=== PATIENT | male | born 1985 | race Two or more races ===

== ENCOUNTER 2017-04-01 15:26 | Inpatient (IN) | payer MEDICAID, OTHER ==
[~2017-04-01] VITALS: Ht 165.1 cm; Wt 63.5 kg
--- NOTE | 2017-04-01 15:44 | NUR ---
PT BIBA FROM WORK S/P A GAS PUMP/PIPE FELL ON TOP OF HIM. NOTED IN C-SPINE PRECUATION. MD AT FOR EVAL. PT AOOX3. C/O BILATERAL HIP, LEG PAIN. VSS. SAFETY AND COMFORT MEASURES PROVIDED. WILL MONITOR.
--- NOTE | 2017-04-01 16:15 | NUR ---
PT TAKEN TO CT.
[2017-04-01] MEDS ORDERED: IV NS 0.9% 1,000 ML BAG IV ONE (17:30)
[2017-04-01] MEDS ORDERED: MORPHINE SULFATE INJ 2 MG/ML DISP.SYRIN IV ONE (17:30)
[2017-04-01] MEDS ORDERED: ONDANSETRON HCL/PF - ER 4 MG/2 ML VIAL IV ONE (17:30)
[2017-04-01 17:32] LABS: BASOPHILS % (AUTO) 0.1 % (0.0-2.0); EOSINOPHILS # (AUTO) 0.1 /CMM (0.0-0.7); EOSINOPHILS % (AUTO) 1.3 % (0.0-6.0); HEMATOCRIT 38 % (39-51); HEMOGLOBIN 12.7 g/dL (13.5-17.5); LYMPHOCYTES # (AUTO) 0.5 /CMM (0.8-4.8); LYMPHOCYTES % (AUTO) 6.3 % (20.0-44.0); MEAN CORPUSCULAR HEMOGLOBIN 29 PG (26.0-33.0); MEAN CORPUSCULAR HGB CONC 34 g/dl (31.0-36.0); MEAN CORPUSCULAR VOLUME 85 fL (80-96); MONOCYTES # (AUTO) 0.7 /CMM (0.1-1.30); MONOCYTES % (AUTO) 8.6 % (2.0-12.0); NEUTROPHILS # (AUTO) 6.7 /CMM (1.8-8.9); NEUTROPHILS % (AUTO) 83.7 % (43.0-81.0); PLATELET COUNT (AUTO) 321 /CMM (150-450); RDW COEFFICIENT OF VARIATION 12.6 (11.5-15.0); RED BLOOD CELL COUNT(AUTO) 4.42 MIL/uL (4.5-6.0)
[2017-04-01 17:41] LABS: CALCIUM, SERUM 8.2 mg/dL (8.5-10.1); POTASSIUM 3.1 mmol/L (3.5-5.1)
[2017-04-01 17:47] LABS: ALBUMIN 3.4 g/dL (3.4-5.0); BILIRUBIN,DIRECT 0.1 mg/dL (0.0-0.2); BILIRUBIN,TOTAL 0.6 mg/dL (0.2-1.0); TOTAL PROTEIN, SERUM 8.6 g/dL (6.4-8.2)
[2017-04-01] MEDS ORDERED: ONDANSETRON HCL/PF 4 MG/2 ML VIAL ONE (17:51)
[2017-04-01] MEDS ORDERED: MORPHINE SULFATE INJ 2 MG/ML DISP.SYRIN ONE ×2 (17:53→22:02)
[2017-04-01 17:59] LABS: INR 0.95 (0.87-1.13); PROTHROMBIN TIME 9.9 SECS (9.5-12.7)
--- NOTE | 2017-04-01 18:10 | NUR ---
PT MEDICATED ORDERED.
[2017-04-01] MEDS ORDERED: IV NS 0.9% 250 ML IV ONE (18:13)
[2017-04-01] MEDS ORDERED: IOHEXOL-300 100 ML VIAL IV ONE (18:13)
--- NOTE | 2017-04-01 18:49 | NUR ---
CALLED DR ARCE FOR ORTHO CONSULT, TRANSFERRED CALL TO DR HERNANDEZ
[2017-04-01 20:00] VITALS: BP 129/82
[2017-04-01] MEDS ORDERED: POTASSIUM CHLORIDE 20 MEQ TAB.PRT.SR PO ONE ×4 (20:20→22:00)
--- NOTE | 2017-04-01 20:30 | NUR ---
RN NOTE PT ARRIVED ON UNIT. AAOX4, ADMITTED FOR PELVIC FX, HAS 7/10 PAIN. NO S/S OF RESPIRATORY DISTRESS - BREATHING NON-LABORED AND EVEN ON ROOM AIR. ORIENTATED TO UNIT AND CALL LIGHT. UPDATED ON POC. IV INTACT AND PATENT. NO SKIN ISSUES. AWAITING MD ORDERS. WILL MONITOR.
--- NOTE | 2017-04-01 20:30 | NUR ---
POTASSIUM 40MEQ GIVEN PER DR NELSON'S VERBAL ORDER FOR POTASSIUM LEVEL OF 3.1.
--- NOTE | 2017-04-01 20:36 | NUR ---
TRANSFERRED TO [facility] FLOOR ROOM 323-2, ENDORSED TO MARY CARMEN MORGAN.
[2017-04-01] MEDS ORDERED: ZOLPIDEM TARTRATE 5 MG TABLET PO PRN (22:00)
[2017-04-01] MEDS ORDERED: MAGNESIUM HYDROXIDE 30 ML UDC PO PRN (22:00)
[2017-04-01] MEDS ORDERED: MAG HYDROX/AL HYDROX/SIMETH 30 ML UDC PO PRN (22:00)
[2017-04-01] MEDS ORDERED: Z GUARD REMEDY 2 OZ OINT TP PRN (22:00)
[2017-04-01] MEDS ORDERED: ACETAMINOPHEN 325 MG TABLET PO PRN (22:00)
[2017-04-01] MEDS ORDERED: ONDANSETRON HCL/PF 4 MG/2 ML VIAL IVP PRN (22:00)
[2017-04-01] MEDS: MORPHINE SULFATE INJ 2 MG/ML DISP.SYRIN IV PRN (22:17)
[2017-04-01] MEDS: IV D5/0.45 NACL 1,000 ML IV PRN (22:18)
--- NOTE | 2017-04-02 07:02 | NUR ---
RN NOTE NO SIGNIFICANT EVENTS OVERNIGHT. PAIN MANAGED WITH PRN MIORPHINE. AAOX4, NO DISTRESS AT THIS TIME. WILL F/U WITH DAY SHIFT FOR YSDNI.
[2017-04-02] MEDS: PANTOPRAZOLE 40 MG TABLET.DR PO SCH (07:30)
--- NOTE | 2017-04-02 07:30 | NUR ---
RN NOTES RECEIVED PATIENT IN BED SLEEPING, AROUSES EASILY. A/O X4. NO ACUTE DISTRESS, NO SOB NOTED. DENIES PAIN AT THIS TIME. IV SITE INTACT AND PATENT. KEPT SAFE AND COMFORTABLE. BED IN LOW POSITION, LOCKED, SIDERAILS UP X2. CALLL LIGHT IN REACH. WILL MONITOR PATIENT ACCORDINGLY.
[2017-04-02 07:49] LABS: BASOPHILS % (AUTO) 0.5 % (0.0-2.0); EOSINOPHILS # (AUTO) 0.3 /CMM (0.0-0.7); EOSINOPHILS % (AUTO) 5.8 % (0.0-6.0); HEMATOCRIT 36 % (39-51); HEMOGLOBIN 11.9 g/dL (13.5-17.5); LYMPHOCYTES # (AUTO) 0.5 /CMM (0.8-4.8); LYMPHOCYTES % (AUTO) 10.2 % (20.0-44.0); MEAN CORPUSCULAR HEMOGLOBIN 29 PG (26.0-33.0); MEAN CORPUSCULAR HGB CONC 33 g/dl (31.0-36.0); MEAN CORPUSCULAR VOLUME 87 fL (80-96); MONOCYTES # (AUTO) 0.6 /CMM (0.1-1.30); MONOCYTES % (AUTO) 13.7 % (2.0-12.0); NEUTROPHILS # (AUTO) 3.1 /CMM (1.8-8.9); NEUTROPHILS % (AUTO) 69.8 % (43.0-81.0); PLATELET COUNT (AUTO) 277 /CMM (150-450); RDW COEFFICIENT OF VARIATION 13.8 (11.5-15.0); RED BLOOD CELL COUNT(AUTO) 4.11 MIL/uL (4.5-6.0); WHITE BLOOD COUNT (AUTO) 4.5 K/uL (4.3-11.0)
[2017-04-02 08:00] VITALS: BP 117/71
--- NOTE | 2017-04-02 08:00 | NUR ---
RN NOTES PROTONIX PO HELD, PATIENT NPO.
[2017-04-02 08:50] LABS: ALBUMIN 2.7 g/dL (3.4-5.0); BILIRUBIN,TOTAL 0.9 mg/dL (0.2-1.0); CALCIUM, SERUM 7.8 mg/dL (8.5-10.1); CREATININE 0.8 mg/dL (0.6-1.3); MAGNESIUM 1.9 mg/dL (1.8-2.4); PHOSPHORUS 3.6 mg/dL (2.5-4.9); POTASSIUM 3.4 mmol/L (3.5-5.1); TOTAL PROTEIN, SERUM 7.6 g/dL (6.4-8.2)
[2017-04-02] MEDS: HYDROCODONE/APAP 5/325MG 1 EACH TABLET PO PRN ×3 (10:25→20:06)
[2017-04-02] MEDS: MORPHINE SULFATE INJ 2 MG/ML DISP.SYRIN IV PRN ×3 (10:28→15:17)
[2017-04-02] MEDS ORDERED: ACET325T53 PO (11:37)
[2017-04-02] MEDS ORDERED: HYDR-3326 PO (11:37)
[2017-04-02] MEDS ORDERED: ASPI325T2 PO (11:41)
[2017-04-02] MEDS: POTASSIUM CL. PREMIX PERIPHER. 50 ML IV SCH ×2 (11:51→13:12)
--- NOTE | 2017-04-02 12:45 | NUR ---
RN NOTES DID BLADDER SCAN, SHOWED 900 ML URINE. NOTIFIED .
--- NOTE | 2017-04-02 14:00 | NUR ---
RN NOTES DID IN/OUT CATHETER, 1200 ML URINE OUTPUT. WILL MONITOR ACCORDINGLY.
[2017-04-02] MEDS: IV D5/0.45 NACL 1,000 ML IV PRN (15:19)
[2017-04-02 16:00] VITALS: BP 118/70
--- NOTE | 2017-04-02 19:00 | NUR ---
RN CLOSING NOTES PATIENT IN BED RESTING. NO ACUTE DISTRESS, NO SOB NOTED, DENIES PAIN AT THIS TIME. ALL NEEDS ATTENDED AND PROVIDED. BED IN LOW POSITION, LOCKED SIDERAILS UP X2. CALL LIGHT IN REACH. ENDORSED TO PROBATION OFFICER RN FOR SYDNI.
--- NOTE | 2017-04-02 19:29 | NUR ---
ms/rn opening notes patient in bed, resting comfortably in bed, able to verbalize needs, will monitor pain and check b/p, respirations even and unlabored, , receive endorsement from am rn regarding patricio, remind patient to use call lights, monitoring urine output, skin warm to touch, fluids offered, iv runining on left fore arm, will continue to monitor.
[2017-04-02 19:58] VITALS: BP 122/81
[2017-04-02 20:00] VITALS: BP 122/81
--- NOTE | 2017-04-02 20:04 | NUR ---
ms/rn notes patient reported pain on right leg 510 will give prn med norco 5/325mg po and will monitor effectiveness.
[2017-04-03] MEDS: MORPHINE SULFATE INJ 2 MG/ML DISP.SYRIN IV PRN ×3 (01:51→11:48)
--- NOTE | 2017-04-03 01:51 | NUR ---
ms/rn notes observed guarding and moaning, pain in abdomen and bladder, will check bladder and check any retention,. no urine on urinal
--- NOTE | 2017-04-03 07:10 | NUR ---
ms/rn notes patient complained of pain 8/10 on left knee, alert, oriented x3 will continue to monitor.
--- NOTE | 2017-04-03 07:30 | NUR ---
ms/rn closing notes patient in bed, resting comfortably in bed, no s/s of discomfort. endorse to am rn regarding patricio. pain monitoring and check for effectiveness. call lights withiin reach.
[2017-04-03 07:42] LABS: CALCIUM, SERUM 7.7 mg/dL (8.5-10.1); CREATININE 0.7 mg/dL (0.6-1.3); POTASSIUM 3.5 mmol/L (3.5-5.1)
[2017-04-03 08:00] VITALS: BP 142/94
[2017-04-03] MEDS: PANTOPRAZOLE 40 MG TABLET.DR PO SCH (08:21)
[2017-04-03] MEDS: HYDROCODONE/APAP 5/325MG 1 EACH TABLET PO PRN (10:08)
--- NOTE | 2017-04-03 12:00 | NUR ---
RN NOTES PT EVAL DONE. PER PT, PATIENT ABLE TO WALK 17 FEET AROUND THE ROOM USING A WALKER, TOLERATED WELL. WILL CONTINUE TO MONITOR ACCORDINGLY
[2017-04-03 16:00] VITALS: BP 142/93
[2017-04-03] MEDS ORDERED: ZOLPIDEM TARTRATE 5 MG TABLET PO PRN (19:00)
[2017-04-03] MEDS ORDERED: MAG HYDROX/AL HYDROX/SIMETH 30 ML UDC PO PRN (19:00)
[2017-04-03] MEDS ORDERED: IV D5/0.45 NACL 1,000 ML IV PRN (19:00)
[2017-04-03] MEDS ORDERED: ACETAMINOPHEN 325 MG TABLET PO PRN (19:00)
[2017-04-03] MEDS ORDERED: MAGNESIUM HYDROXIDE 30 ML UDC PO PRN (19:00)
[2017-04-03] MEDS ORDERED: ONDANSETRON HCL/PF 4 MG/2 ML VIAL IVP PRN (19:00)
--- NOTE | 2017-04-03 19:30 | NUR ---
RN NOTES PATIENT IN BED RESTING. NO ACUTE DISTRESS, NO SOB NOTED. ALL NEEDS ATTENDED AND PROVIDED. KEPT PATIENT SAFE AND COMFORTABLE. AWAITING FOR DISCHARGE. BED IN LOW POSITION, LOCKED, SIDERAILS UP X2. CALL LIGHT IN REACH, ENDORSED TO URGENT CARE NURSE PRACTITIONER RN FOR SYDNI.
--- NOTE | 2017-04-03 19:30 | NUR ---
RN OPENING NOTES Pt AWAITING TO BE DISCHARGED. D/C ORDERS IN AND EXIT CARE DONE BY RINA MORGAN. Pt IS WAITING FOR HIS PRESCRIPTION FOR NORCO 5-[address] WAS [address] JENNIFER Leggett, BUT WAS NOT PHYSICALLY WRITTEN FOR THE Pt TO TAKE TO THE PHARMACY. WILL SEE IF SOFTWARE ENGINEERING PROJECT MANAGER EPIC MD WILL BE ABLE TO WRITE THE PRESCRIPTION FOR THE Pt INSTEAD. FOUND Pt AWAKE, SITTING IN CHAIR. NO S/S OF ACUTE DISTRESS OR SOB NOTED. Pt IS A/OX4, VERBAL, ABLE TO MAKE NEEDS KNOWN. SAFETY MEASURES IN PLACE. BED LOW, LOCKED, HOB ELEVATED, SIDE RAILS UP, CALL LIGHT AND BEDSIDE TABLE WITHIN REACH. WILL CONTINUE TO MONITOR Pt FOR SAFETY UNTIL DISCHARGE.
[2017-04-03 20:00] VITALS: BP 125/86
--- NOTE | 2017-04-03 21:00 | NUR ---
RN NOTES SPOKE WITH DR NUNEZ ON THE PHONE FIRST TIME AROUND 2029, MD REFUSING TO WRITE A PRESCRIPTION NORCO 5-325 FOR THE Pt SINCE IT WAS DR RODRIGUEZ WHO ORIGINALLY ORDERED THE PRESCRIPTION. DR NUNEZ SAID THE OVER THE COUNTER PAIN MEDS: ACETAMINOPHEN & IBUPROFEN SHOULD BE ENOUGH TO TAKE CARE OF THE Pt's PAIN AND THAT HE DOES NOT NEED THE NORCO. SPOKE WITH THE FAMILY ABOUT THE SITUATION SAYING THAT THE DR SAID THE Pt DOES NOT NEED NORCO FOR HIS PAIN, SO THEREFORE THE MD WAS NOT GOING TO WRITE A PRESCRIPTION FOR THE Pt. THE FAMILY AND THE Pt WERE UPSET, SAYING THAT THE PAIN WILL NOT BE TAKEN CARE OF BY OTC PAIN MEDS AND THAT THE Pt NEEDS STRONGER PAIN MED IF HE IS TO BE DISCHARGED HOME. Pt REFUSED TO GO HOME WITHOUT SOME KIND OF PAIN MED PRESCRIPTION FOR HIS PAIN. SPOKE WITH DR NUNEZ AGAIN ON THE PHONE AROUND 2044, AND RELAYED THE MESSAGE THAT THE Pt IS REFUSING TO LEAVE WITHOUT A PAIN MED PRESCRIPTION BECAUSE HE IS HAVING TOO MUCH PAIN. SO DR. NUNEZ SUGGESTED THAT HE STAY IN THE HOSPITAL FOR ANOTHER NIGHT IF HIS PAIN IS NOT TOLERATED, AND HIS PAIN LEVEL CAN BE REASSESSED TOMORROW BEFORE DISCHARGE. SPOKE TO THE Pt AND HIS FAMILY ABOUT THE ALTERNATIVE CHOICE TO STAY ANOTHER NIGHT AND BE DISCHARGED TOMORROW MORNING INSTEAD. Pt AND FAMILY AGREED TO STAY ONE MORE NIGHT.
[2017-04-04] MEDS: MORPHINE SULFATE INJ 2 MG/ML DISP.SYRIN IV PRN ×3 (01:40→22:08)
--- NOTE | 2017-04-04 06:51 | NUR ---
RN CLOSING NOTES NO SIGNIFICANT CHANGES IN Pt's CONDITION. NO S/S OF ACUTE DISTRESS OR SOB NOTED DURING THE NIGHT. ALL NEEDS MET AND ATTENDED TO. SAFETY MEASURES IN PLACE. WAITING TO BE D/C TODAY IN THE AM. WILL ENDORSE TO DAYSHIFT RN FOR Pt's SYDNI.
--- NOTE | 2017-04-04 07:30 | NUR ---
- Patient fully awake, cooperative & agreed to wait for MD, prefers to have the prescription prior to going home. Eating breakfast this time.
[2017-04-04 08:00] VITALS: BP 137/74
[2017-04-04] MEDS: PANTOPRAZOLE 40 MG TABLET.DR PO SCH (08:49)
[2017-04-04] MEDS: HYDROCODONE/APAP 5/325MG 1 EACH TABLET PO PRN ×2 (08:50→20:47)
--- NOTE | 2017-04-04 09:55 | NUR ---
- Visited by Dr. RODRIGUEZ , no new orders except giving info to vanna Fulton RN RE; SNF , being arranged by CM , since patient has impaired mobility. Waiting for CM .
--- NOTE | 2017-04-04 12:00 | NUR ---
- Was notified by JIM ACEVEDO RN that patient is allowed to stay till THURSDAY due to pain management. Patient calls for pain meds & agreed to alternate [place] in between .
[2017-04-04 16:00] VITALS: BP 119/70
[2017-04-04 16:02] VITALS: BP 119/70
--- NOTE | 2017-04-04 18:00 | NUR ---
Closing RN Notes: - this time , patient is looking at TV , refused dinner since his Mom brought pizza & soda . Still needs Physical Therapy eval . , since patient is non-ambulatory & Dr. RODRIGUEZ prefers to check patient's mobility prior to discharge. Patient remains on room air, non;labored respirations.
[2017-04-04 20:00] VITALS: BP 122/82
[2017-04-05] MEDS: MORPHINE SULFATE INJ 2 MG/ML DISP.SYRIN IV PRN ×5 (02:44→20:17)
--- NOTE | 2017-04-05 07:15 | NUR ---
RN NOTES PT IS IN BED, RESTING COMFORTABLY. PT ON RA, RESPIRATIONS ARE EVEN AND UNLABORED. IV ON LFA INTACT AND PATENT. SAFETY MEASURES ARE IN PLACE, CALL LIGHT IS IN REACH. WILL CONTINUE TO MONITOR.
--- NOTE | 2017-04-05 07:40 | NUR ---
pt with pelvic fracture,ambulates with walker to bathroom, morphine given for pain with good relief.no bm but passes gas. eating well, vss,afebrile,plan rehab thursday.all needs attended.
[2017-04-05] MEDS: PANTOPRAZOLE 40 MG TABLET.DR PO SCH (07:41)
[2017-04-05 08:00] VITALS: BP 132/88
[2017-04-05 16:00] VITALS: BP 136/81
--- NOTE | 2017-04-05 18:49 | NUR ---
RN NOTES PT IS IN BED, RESTING COMFORTABLY. PT ON RA, RESPIRATIONS ARE EVEN AND UNLABORED. MORPHINE WAS GIVEN AT 1620 FOR PAIN. IV ON L WRIST INTACT AND PATENT, SL. ALL MEDS WERE GIVEN ORDERED. SAFETY MEASURES ARE IN PLACE, CALL LIGHT IS IN REACH. WILL ENDORSE TO ELECTRONICS TECHNICIAN RN FOR CONTINUITY OF CARE.
--- NOTE | 2017-04-05 19:50 | NUR ---
RN INITIAL NOTES: RECEIVED REPORT FROM DAVID, PT IN BED, SLEEPING, AROUSES TO TACTILE STIMULI, PER PT HE HAS 6/10 PAIN THAT STAYS ION HIS SACRAL AREA, PT REFUSED TO WEAR HOSPITAL GOWN AND INSISTED TO USE HIS OWN CLOTHES. PT HAS LFA IV ACCESS PATENT AND FLUSHING WELL, INFUSING WITH D5 1/2 NS AT 75ML/HR. SAFETY PRECAUTIONS FOR FALL INITIATED CALL LIGHT IN REACH, WILL CONTINUE TO MONITOR.
[2017-04-05 20:00] VITALS: BP 122/70
--- NOTE | 2017-04-05 20:18 | NUR ---
PRN MORPHINE: PT C/O 02/26 PAIN ON HIS SACRAL TO HIP AREA REQUESTING FOR MORPHINE, PRN MORPHINE 2MG IVP ADMINISTERED TO THE PT AT THIS TIME, EDUCATE PT REGARDING MEDICATION SIDE EFFECT, PT IS REQUESTING TO GET HIS NORCO TOGETHER WITH HIS MORPHINE, INFORMED PT ITS NOT POSSIBLE MORPHINE IS ALREADY A STRONGER PAIN MEDICATION, HE CAN GET THE NORCO FOR A MODERATE PAIN OR AT LEAST AFTER AN HOUR IF PAIN STILL NOT RELIEVE BY MORPHINE. PT UNDERSTAND. WILL CONTINUE TO MONITOR AND REASSESS
--- NOTE | 2017-04-05 20:32 | NUR ---
rn notes: sharmila saini city marshal currently in the unit, relayed about pt's request for cough medicine, per city marshal okay to give Robitussin 300mg po q6hr prn for cough
[2017-04-05] MEDS ORDERED: GUAIFENESIN 300 MG/15 ML UDC ONE (20:37)
--- NOTE | 2017-04-05 20:40 | NUR ---
rn notes; pt refused for scd, stated he doesnt want it and it cause more discomfort on the right pelvic area?
[2017-04-05] MEDS ORDERED: GUAIFENESIN 300 MG/15 ML UDC PO PRN (21:00)
--- NOTE | 2017-04-05 21:20 | NUR ---
rn notes: went to see the pt, currently pt asleep snoring, no facial grimace noted, appears comfortable, giselle vang as witness during pt's rounding
--- NOTE | 2017-04-05 22:39 | NUR ---
rn notes: hourly rounding at this time, pt still sleeping respiration even and unlabored, will continue to monitor
[2017-04-06] VITALS: BP 126/75
[2017-04-06] MEDS: MORPHINE SULFATE INJ 2 MG/ML DISP.SYRIN IV PRN ×5 (00:17→17:36)
--- NOTE | 2017-04-06 00:18 | NUR ---
prn morphine: pt c/o 02/26 pelvic pain requesting for morphine, prn morphine 2mg ivp administered to the pt at this time will continue to monitor and reassess
--- NOTE | 2017-04-06 04:27 | NUR ---
prn morphine: pt called c/o pain on his lower back and pelvic area 02/26 requesting for morphine prn morphine 2mg ivp administered to the pt at this time will continue to monitor and reasses
--- NOTE | 2017-04-06 06:52 | NUR ---
rn closing notes: pt in bed, awake respiration even and unlabored, last pain medication administered at 0420, lfa iv access remains patent and flushing well, infusing with d5 1/2 ns at 75ml/hr, vs remains stable needs attended for possible dc awaiting for aru placement, cm aware, safety precautions remains engaged call light in reach, will endorse to day rn for patricio.
--- NOTE | 2017-04-06 07:18 | NUR ---
MS/RN OPENING NOTES: RECEIVED PT SITTING ON THE SIDE OF HIS BED IN NO ACUTE SIGNS OF DISTRESS. A/O X 3. VERBALLY RESPONSIVE WITH NO C/O PAIN OR DISCOMFORTS AT THIS TIME. ON ROOM AIR, BREATHING EVEN AND UNLABORED. LFA IV ACCESS INTACT AND PATENT WITH D5 1/2 NS AT 75ML/HR INFUSING WELL. SAFETY PRECAUTIONS FOR FALL IN PLACED. CALL LIGHT IN REACH. WILL CONTINUE TO MONITOR PT ACCORDINGLY.
[2017-04-06 08:00] VITALS: BP 112/68
[2017-04-06] MEDS: PANTOPRAZOLE 40 MG TABLET.DR PO SCH (08:03)
--- NOTE | 2017-04-06 10:26 | NUR ---
RN NOTES SEEN BY DR RODRIGUEZ THIS MORNING WITH ORDER TO DO PT EVALUATION TODAY. PHYSICAL THERAPIST CALLED AND SAID THAT THEY WILL COME AND DO IT. WILL CONTINUE TO MONITOR.
[2017-04-06 16:00] VITALS: BP 112/72
--- NOTE | 2017-04-06 18:47 | NUR ---
MS/RN CLOSING NOTES: PT RESTING BED A/O X 3 AND SAME VERBALLY RESPONSIVE. ALL NEEDS AND CARE ATTENDED WELL. ABLE TO AMBULATE WITH WALKER. ON ROOM AIR, BREATHING EVEN AND UNLABORED. LFA IV ACCESS INTACT AND PATENT WITH D5 1/2 NS @ 75ML/HR INFUSING WELL, NO SIGNS OF INFILTRATION NOTED. SAFETY PRECAUTIONS FOR FALL MAINTAINED. CALL LIGHT IN REACH. WILL ENDORSED TO BILINGUAL ACCOUNT MANAGER NURSE THAT PT IS FOR DISCHARGE TONIGHT.
== END 2017-04-06 19:50 | disposition home or self-care (01) | DRG 536 ==
LOC: ER 15:29 → MED 17:50 → UNDOADMIN 20:28 → UNDODISIN 04-03 17:50
PROVIDERS: ADMIT Internal Medicine; ATTEND Internal Medicine
DX: S32.82XA Multiple fractures of pelvis without disruption of pelvic ring, initial encounter for closed fracture (principal); S32.10XA Unspecified fracture of sacrum, initial encounter for closed fracture; W20.8XXA Other cause of strike by thrown, projected or falling object, initial encounter; Y92.89 Other specified places as the place of occurrence of the external cause; E87.6 Hypokalemia
CPT/HCPCS: 36415; 71010-TC; 72170-TC; 72192-TC; 73502; 80048-TC; 80053-TC; 80061-TC; 80076-TC; 83540-TC; 83735-TC; 84100-TC; 85025-TC; 85730-TC; 87081-TC; J2270; J2405; J3480; J3490; J7030; J7050; Q9967